=== PATIENT | female | born 1980 ===

== ENCOUNTER 2017-07-21 07:17 | Observation (INO) | payer OTHER ==
[2017-07-21 07:25] VITALS: BMI 25.0
[2017-07-21] MEDS ORDERED: Sodium Chloride 0.9% 1,000 ML IV STA (08:10)
--- NOTE | 2017-07-21 08:30 | ED PDOC ---
HPI: Abdomen Time Seen by Provider: 07/21/17 07:29 Chief Complaint (Nursing): Abdominal Pain Chief Complaint (Provider): Abdominal Pain History Per: Patient History/Exam Limitations: no limitations Onset/Duration Of Symptoms: Days (x1) Outside of [place] travel?: No Current Symptoms Are (Timing): Still Present Context: Food Associated Symptoms: Nausea. denies: Fever, Diarrhea Additional Complaint(s): 36 y/o female presents to the ED with abdominal pain. Patient states she had lunch yesterday and immediately after felt nausea with pain to her abdomen. She reports her ate the same food with no issues. Patient reports this is the 5th episode in the last two weeks. She also complains of feeling "gassy". Denies any fever, diarrhea, or genitourinary symptoms. PMD: none provided Past Medical History Reviewed: Historical Data, Nursing Documentation, Vital Signs Vital Signs: Last Vital Signs Temp 98.2 F 07/21/17 13:48 Pulse 58 L 07/21/17 13:48 Resp 17 07/21/17 13:48 BP 111/57 L 07/21/17 13:48 Pulse Ox 98 07/21/17 13:48 - Medical History PMH: No Chronic Diseases - Surgical History Surgical History: Other surgeries: tubal ligation - Family History Family History: States: No Known Family Hx - Living Arrangements Living Arrangements: With Family - Social History Current smoker - smoking cessation education provided: No Ex-Smoker (has not smoked in the last 12 months): No Alcohol: None Drugs: Denies - Home Medications Home Medications: Ambulatory Orders Medication Instructions Recorded No Known Home Med 07/21/17 - Allergies Allergies/Adverse Reactions: Allergies Allergy/AdvReac Type Severity Reaction Status Date / Time apple Allergy ITCHING Verified 07/21/17 07:40 Review of Systems ROS Statement: Except As Marked, All Systems Reviewed And Found Negative Constitutional: Negative for: Fever Gastrointestinal: Positive for: Nausea, Abdominal Pain, Other (gassy). Negative for: Diarrhea Genitourinary Female: Negative for: Other (genitourinary symptoms) Physical Exam - Reviewed Nursing Documentation Reviewed: Yes Vital Signs Reviewed: Yes - Physical Exam Appears: Positive for: Non-toxic, No Acute Distress Head Exam: Positive for: ATRAUMATIC, NORMOCEPHALIC Skin: Positive for: Normal Color, Warm, Dry Eye Exam: Positive for: EOMI, Normal appearance, PERRL Cardiovascular/Chest: Positive for: Regular Rate, Rhythm. Negative for: Murmur Respiratory: Positive for: Normal Breath Sounds. Negative for: Respiratory Distress Gastrointestinal/Abdominal: Positive for: Normal Exam, Soft, Tenderness (LUQ). Negative for: Guarding, Rebound Extremity: Positive for: Normal ROM Neurologic/Psych: Positive for: Alert, Oriented (x3) - Laboratory Results Result Diagrams: 07/21/17 08:31 07/21/17 08:31 - ECG O2 Sat by Pulse Oximetry: 100 (RA) Pulse Ox Interpretation: Normal - Physician Consult Information Time Consulting Physican Contacted: 15:21 Physician Contacted: Regan Connell Outcome Of Conversation: Recommends MRCP, NPO, abx, admit to Hospitalist. Medical Decision Making Medical Decision Making: Time: 7:26 Impression: Intermittent abdominal pain Initial Plan: * CAT Scan Abd/Pelvis IV contrast * CMP * Lipase Test * UDip * Test * PTT * Prothrombin Time * Morphine 2 mg IV * IV Fluids * Zofran 4 mg PO * Urinalysis * CBC Scribe Attestation: Documented by Jacki Hurtado acting as a scribe Svitlana Neal MD. Scribe Attestation: All medical record entries made by the Scribe were at my direction and personally dictated by me. I have reviewed the chart and agree that the record accurately reflects my personal performance of the history, physical exam, medical decision making, and the department course for this patient. I have also personally directed, reviewed, and agree with the discharge instructions and disposition. Disposition - Disposition Forms: [facility] ([place])
[2017-07-21 08:36] LABS: BASO % 0.5 % (0.0-2.0); EOS # 0.2 K/uL (0.0-0.7); EOS % 3.7 % (0.0-4.0); HEMOGLOBIN 13.4 g/dL (12.0-16.0); LYMPH # 0.8 K/uL (1.0-4.3); LYMPH % 15.2 % (20.0-40.0); MEAN CORPUSCULAR HEMOGLOBIN 31.2 pg (27.0-31.0); MEAN CORPUSCULAR HGB CONC 34.3 g/dL (33.0-37.0); MEAN PLATELET VOLUME 7.6 fl (7.2-11.7); MONO # 0.4 K/uL (0.0-0.8); MONO % 8.8 % (0.0-10.0); NEUT # 3.6 K/uL (1.8-7.0); NEUT % 71.8 % (50.0-75.0); RBC 4.28 Mil/uL (3.80-5.20); RED CELL DISTRIBUTION WIDTH 13.8 % (11.5-14.5); WHITE BLOOD COUNT 5.1 K/uL (4.8-10.8)
[2017-07-21 08:46] LABS: INR 1.1 (0.9-1.2); PARTIAL THROMBOPLASTIN TIME 27.5 Seconds (25.6-37.1); PROTHROMBIN TIME 11.7 Seconds (9.8-13.1)
[2017-07-21 08:47] LABS: SQUAMOUS EPITHIAL 1 /hpf (0-5); URINE BILIRUBIN NEGATIVE (NEGATIVE); URINE BLOOD NEGATIVE (NEGATIVE); URINE CLARITY SLIGHTY-CLOUDY (Clear); URINE COLOR AMBER (YELLOW); URINE GLUCOSE (UA) NEG (Normal); URINE LEUKOCYTE ESTERASE NEG Leu/uL (Negative); URINE PROTEIN 30 mg/dL (NEGATIVE)
[2017-07-21 08:49] LABS: ALB/GLOB RATIO 1.4 (1.0-2.1); ALBUMIN 4.1 g/dL (3.5-5.0); BLOOD UREA NITROGEN 17 mg/dl (7-17); CALCIUM 9.3 mg/dL (8.4-10.2); GFR AFRICAN-AMERICAN > 60; GFR NON-AFRICAN AMERICAN > 60; LIPASE 371 U/L (23-300)
[2017-07-21 09:05] LABS: ALT/SGPT 1198 U/L (9-52); AST/SGOT 855 U/L (14-36)
[2017-07-21] MEDS ORDERED: Sodium Chloride 0.9% 50 ML IV ONE (10:32)
[2017-07-21] MEDS ORDERED: Iohexol 300 100 ML IJ ONE (10:32)
--- NOTE | 2017-07-21 11:24 | CT ---
PROCEDURE: CT Abdomen and Pelvis with contrast HISTORY: LUQ pain COMPARISON: CT scan of the abdomen pelvis dated 01/04/2009. TECHNIQUE: Contrast dose: 95 mL Omnipaque 300 Radiation dose: Total exam DLP = 465.4 mGy-cm. This CT exam was performed using one or more of the following dose reduction techniques: Automated exposure control, adjustment of the mA and/or kV according to patient size, and/or use of iterative reconstruction technique. FINDINGS: LOWER THORAX: Unremarkable. LIVER: Hepatic steatosis. No gross lesion or ductal dilatation. GALLBLADDER AND BILE DUCTS: Distended gallbladder with wall thickening/edema/enhancement. PANCREAS: Unremarkable. No gross lesion or ductal dilatation. SPLEEN: Unremarkable. ADRENALS: Unremarkable. No mass. KIDNEYS AND URETERS: Unremarkable. No hydronephrosis. No solid mass. VASCULATURE: Unremarkable. No aortic aneurysm. BOWEL: Unremarkable. No obstruction. No gross mural thickening. APPENDIX: Normal appendix. PERITONEUM: Unremarkable. No free fluid. No free air. LYMPH NODES: Unremarkable. No enlarged lymph nodes. BLADDER: Unremarkable. REPRODUCTIVE: Unremarkable. BONES: No acute fracture. OTHER FINDINGS: None. IMPRESSION: Distended gallbladder with wall thickening/ edema/enhancement for which gallbladder pathology cannot be excluded. Right upper quadrant ultrasound can be obtained for further evaluation as clinically warranted.
--- NOTE | 2017-07-21 14:49 | US ---
HISTORY: Abnormal CT, elevated LFTs COMPARISON: Correlations made CT scan of the abdomen pelvis performed earlier the same date. TECHNIQUE: Sonographic evaluation of the right upper quadrant of the abdomen. FINDINGS: LIVER: Measures 16 cm in length. Increased echogenicity of the liver parenchyma. No mass. No intrahepatic bile duct dilatation. GALLBLADDER: Cholelithiasis with gallbladder wall thickening/edema. Sonographic Stewart sign was elicited. COMMON BILE DUCT: Measures 6 mm. No stones. No dilatation. PANCREAS: Unremarkable as visualized. No mass. No ductal dilatation. RIGHT KIDNEY: Measures 11.2 x 5.1 x 4.1 cm in length. Normal echogenicity. No calculus, mass, or hydronephrosis. AORTA: No aneurysmal dilatation. IVC: Unremarkable. OTHER FINDINGS: None . IMPRESSION: Cholelithiasis with gallbladder wall thickening/ edema and positive sonographic Stewart's sign suspicious for acute cholecystitis.
[2017-07-21] MEDS ORDERED: Piperacillin/Tazobact 3.375 GM in Sodium Chloride 0.9% 100 ML IVPB STA (14:58)
[2017-07-21] MEDS ORDERED: Piperacillin/Tazobact 4.5 GM in Sodium Chloride 0.9% 100 ML IVPB STA (15:10)
[2017-07-21] MEDS ORDERED: Dextrose 5%/0.9% NS 1,000 ML IV ONE (15:43)
--- NOTE | 2017-07-21 16:03 | CP.PCM.HP ---
History of Present Illness - History of Present Illness History of Present Illness: CC: Nausea/vomiting This is a 36 year old female with past medical history of nephrolithiasis 10 years ago, no other medical problems, who began having intermittent nausea and vomiting associated with fatty meals, 3 weeks ago. Associated with this vomiting (nonbloody), the patient also began having sharp right sided back and upper thigh pain and a burning sensation in the epigastric area. The patient last night had several bouts of nausea and vomiting which prompted her to come to the ED this morning. In the ED, the patient was found to be hemodynamically stable. Lab results however revealed T bili of 1.5, AST of 855, ALT of 1198, and mildly elevated lipase of 371. CT scan and follow up sonogram revealed cholelithiasis with gallbladder wall thickening/edema with positive Stewart's sign. There is no evidence of CBD dilatation however. Dr. Connell, general surgery , was consulted from the ED. The patient is being admitted to med/surg for acute cholecystitis for further workup and management. Present on Admission - Present on Admission Any Indicators Present on Admission: No History of DVT/PE: No History of Uncontrolled Diabetes: No Review of Systems - Review of Systems Review of Systems: A 12 point review of systems was conducted and found to be negative other than what was mentioned in the HPI. Past Patient History - Infectious Disease Hx of Infectious Diseases: None - Past Medical History & Family History Past Medical History?: Yes Past Family History: Reviewed and not pertinent - Past Social History Smoking Status: Former Smoker Alcohol: None Drugs: Denies Home Situation {Lives}: With Family - CARDIAC Hx Cardiac Disorders: No Hx Congestive Heart Failure: No Hx Hypercholesterolemia: No - PULMONARY Hx Asthma: No - ENDOCRINE/METABOLIC Hx Diabetes Mellitus Type 1: No Hx Diabetes Mellitus Type 2: No - GASTROINTESTINAL Hx Gastrointestinal Disorders: No - PSYCHIATRIC Hx Substance Use: No - SURGICAL HISTORY Hx Surgeries: Yes Hx Section: Yes (x1) Hx Hysterectomy: Yes Meds Allergies/Adverse Reactions: Allergies Allergy/AdvReac Type Severity Reaction Status Date / Time apple Allergy ITCHING Verified 07/21/17 07:40 Physical Exam - Additional Findings Additional findings: Physical exam: Constitutional- cooperative, awake, alert Head- NCAT, PERRL Eye- PERRL, EOMI ENT- normal exam, MMM. Neck- normal inspection, supple, no JVD Respiratory- CTAB, no wheezes rales rhonchi Cardiovascular- RRR, +S1, +S2 no MRG GI/Abdominal-+ Tenderness to palpation of the RUQ. normal bowel sounds, soft, no mass, no hsm Skin- warm, dry Extremities Exam- normal capillary refill, normal inspection Neurological Exam- alert, awake, oriented Psych- normal mood, normal affect Results - Vital Signs Recent Vital Signs: Last Vital Signs Temp 98.2 F 07/21/17 13:48 Pulse 58 L 07/21/17 13:48 Resp 17 07/21/17 13:48 BP 111/57 L 07/21/17 13:48 Pulse Ox 100 07/21/17 15:22 - Labs Result Diagrams: 07/21/17 08:31 07/21/17 08:31 Labs: Laboratory Results - last 24 hr 07/21/17 07/21/17 07/21/17 08:31 08:31 08:31 WBC 5.1 RBC 4.28 Hgb 13.4 Hct 38.9 MCV 91.0 MCH 31.2 H MCHC 34.3 RDW 13.8 Plt Count 197 MPV 7.6 Neut % (Auto) 71.8 Lymph % (Auto) 15.2 L [place] % (Auto) 8.8 Eos % (Auto) 3.7 Baso % (Auto) 0.5 Neut # (Auto) 3.6 Lymph # (Auto) 0.8 L [place] # (Auto) 0.4 Eos # (Auto) 0.2 Baso # (Auto) 0.0 PT 11.7 INR 1.1 APTT 27.5 Sodium 138 Potassium 3.7 Chloride 101 Carbon Dioxide 31 H Anion Gap 10 BUN 17 Creatinine 0.6 L Est GFR ( Amer) > 60 Est GFR (Non-Af Amer) > 60 Random Glucose 95 Calcium 9.3 Total Bilirubin 1.5 H AST 855 H ALT 1198 H Alkaline Phosphatase 122 Total Protein 7.2 Albumin 4.1 Globulin 3.0 Albumin/Globulin Ratio 1.4 Lipase 371 H Urine Color Urine Clarity Urine pH Ur Specific [place] Urine Protein Urine Glucose (UA) Urine Ketones Urine Blood Urine Nitrate Urine Bilirubin Urine Urobilinogen Ur Leukocyte Esterase Urine RBC (Auto) Urine Microscopic WBC Ur Squamous Epith Cells 07/21/17 08:31 WBC RBC Hgb Hct MCV MCH MCHC RDW Plt Count MPV Neut % (Auto) Lymph % (Auto) [place] % (Auto) Eos % (Auto) Baso % (Auto) Neut # (Auto) Lymph # (Auto) [place] # (Auto) Eos # (Auto) Baso # (Auto) PT INR APTT Sodium Potassium Chloride Carbon Dioxide Anion Gap BUN Creatinine Est GFR ( Amer) Est GFR (Non-Af Amer) Random Glucose Calcium Total Bilirubin AST ALT Alkaline Phosphatase Total Protein Albumin Globulin Albumin/Globulin Ratio Lipase Urine Color [place] Urine Clarity Slighty-cloudy Urine pH 7.0 Ur Specific [place] 1.028 Urine Protein 30 Urine Glucose (UA) Neg Urine Ketones Trace Urine Blood Negative Urine Nitrate Negative Urine Bilirubin Negative Urine Urobilinogen 2.0 H Ur Leukocyte Esterase Neg Urine RBC (Auto) 2 Urine Microscopic WBC < 1 Ur Squamous Epith Cells 1 Assessment & Plan - Assessment and Plan (Free Text) Plan: This is a 36 year old female with past medical history of nephrolithiasis 10 years ago, no other medical problems, who is being admitted for acute cholecystitis 1) Acute cholecystitis with elevated transaminases and mildly elevated lipase - Admit to med/surg - Consultation with general surgery appreciated - MRCP for further evaluation and to evaluate for choledocholithiasis - Trend bili, AST/ALT, monitor closely for cholangitis - Zosyn - D5 NS at 100 cc/hour while NPO - Pain management with morphine 2) DVT prophylaxis - SCDs
[2017-07-21] MEDS ORDERED: Piperacillin/Tazobact 3.375 gm Inj IVPB ONE (17:44)
[2017-07-21] MEDS: Piperacillin/Tazobact 3.375 GM in Sodium Chloride 0.9% 100 ML IVPB SCH ×2 (17:45→23:00)
--- NOTE | 2017-07-21 17:57 | MRI ---
PROCEDURE: Magnetic Resonance Cholangiopancreatography HISTORY: COMPARISON: None available. TECHNIQUE: Multiplanar, multisequence MR images of the abdomen were obtained, including heavily T2 weighted MRCP images of the biliary system. Rotating maximum intensity projection images of the biliary system were generated. FINDINGS: MRCP: The common bile duct is of a normal caliber. No evidence of choledocholithiasis. No intrahepatic biliary ductal dilatation. LIVER: Unremarkable. GALLBLADDER: Cholelithiasis. Thickened wall. Mild pericholecystic edema. No kady pericholecystic fluid. SPLEEN: Unremarkable. PANCREAS: Unremarkable. ADRENALS: Unremarkable. KIDNEYS: Unremarkable. AORTA: No aneurysm. ASCITES: None. OTHER FINDINGS: None. IMPRESSION: Cholelithiasis with thickened gallbladder wall and mild pericholecystic edema. Possible cholecystitis. No evidence of choledocholithiasis or biliary obstruction.
[2017-07-21] MEDS ORDERED: Sodium Chloride 0.9% 1,000 ML IV SCH (18:00)
[2017-07-21] MEDS: Sodium Chloride 0.9% 1,000 ML IV SCH (18:02)
--- NOTE | 2017-07-21 19:51 | CP.PCM.CON ---
History of Present Illness - History of Present Illness History of Present Illness: General Surgery Consult Note: Dr. Connell 36F with no significant past medical history presents to [facility] ED with complaints of abdominal pain. Patient states she's been having abdominal pain for the past 2 months. She describes the pain usually comes about after having meals. Yesterday she developed epigastric pain that radiated towards her RUQ. Patient admits this has been the most painful episode she's had to date. She reports having multiples bouts of emesis after having had a large meal of ceviche and fried fish. At time of examination she reported nausea. Denied fever /chills, chest pain, shortness of breath, dysuria. PMH: as stated above PSurgHx: Csection 9 years ago, abdominoplasty and tubal ligation 4 years ago Allergies: Apple Fam Hx: non-contributory Review of Systems - Review of Systems Review of Systems: 12pt ROS unremarkable, except as stated in HPI Past Patient History - Infectious Disease Hx of Infectious Diseases: None - Past Medical History & Family History Past Medical History?: Yes Past Family History: Reviewed and not pertinent - Past Social History Smoking Status: Former Smoker Alcohol: None Drugs: Denies Home Situation {Lives}: With Family - CARDIAC Hx Cardiac Disorders: No Hx Congestive Heart Failure: No Hx Hypercholesterolemia: No - PULMONARY Hx Asthma: No - ENDOCRINE/METABOLIC Hx Diabetes Mellitus Type 1: No Hx Diabetes Mellitus Type 2: No - GASTROINTESTINAL Hx Gastrointestinal Disorders: No - PSYCHIATRIC Hx Substance Use: No - SURGICAL HISTORY Hx Surgeries: Yes Hx Section: Yes (x1) Hx Hysterectomy: Yes Meds Allergies/Adverse Reactions: Allergies Allergy/AdvReac Type Severity Reaction Status Date / Time apple Allergy ITCHING Verified 07/21/17 07:40 - Medications Medications: Current Medications Piperacillin Sod/Tazobactam (Sod 3.375 gm/ Sodium Chloride) 100 mls @ 100 mls/ hr IVPB Q6 BRENDEN PRN Reason: Protocol Last Admin: 07/21/17 17:45 Dose: 100 mls/hr Sodium Chloride (Sodium Chloride 0.9%) 1,000 mls @ 200 mls/hr IV .Q5H BRENDEN Stop: 07/22/17 17:57 Last Admin: 07/21/17 18:02 Dose: 200 mls/hr Morphine Sulfate (Morphine) 2 mg IVP Q4 PRN PRN Reason: Pain, moderate (4-7) Morphine Sulfate (Morphine) 4 mg IVP Q6 PRN PRN Reason: Pain, severe (8-10) Ondansetron HCl (Zofran Odt) 4 mg PO Q8H PRN PRN Reason: Nausea/Vomiting Physical Exam - Constitutional Appears: Non-toxic, No Acute Distress - Head Exam Head Exam: NORMOCEPHALIC - Eye Exam Eye Exam: EOMI, Normal appearance - ENT Exam ENT Exam: Mucous Membranes Moist - Respiratory Exam Respiratory Exam: NORMAL BREATHING PATTERN - Cardiovascular Exam Cardiovascular Exam: +S1, +S2 - GI/Abdominal Exam GI & Abdominal Exam: Soft, Tenderness. absent: Firm, Guarding, Hernia, Rebound , Rigid Additional comments: +Stewart's +RUQ tenderness +Epigastric tenderness - Neurological Exam Neurological exam: Alert, Oriented x3 - Psychiatric Exam Psychiatric exam: Normal Mood - Skin Skin Exam: Dry, Intact, Normal Color, Warm Results - Vital Signs Recent Vital Signs: Last Vital Signs Temp 98.7 F 07/21/17 17:51 Pulse 63 07/21/17 17:51 Resp 16 07/21/17 17:51 BP 93/57 L 07/21/17 17:51 Pulse Ox 98 07/21/17 17:51 - Labs Result Diagrams: 07/21/17 08:31 07/21/17 08:31 Labs: Laboratory Results - last 24 hr 07/21/17 07/21/17 07/21/17 08:31 08:31 08:31 WBC 5.1 RBC 4.28 Hgb 13.4 Hct 38.9 MCV 91.0 MCH 31.2 H MCHC 34.3 RDW 13.8 Plt Count 197 MPV 7.6 Neut % (Auto) 71.8 Lymph % (Auto) 15.2 L [place] % (Auto) 8.8 Eos % (Auto) 3.7 Baso % (Auto) 0.5 Neut # (Auto) 3.6 Lymph # (Auto) 0.8 L [place] # (Auto) 0.4 Eos # (Auto) 0.2 Baso # (Auto) 0.0 PT 11.7 INR 1.1 APTT 27.5 Sodium 138 Potassium 3.7 Chloride 101 Carbon Dioxide 31 H Anion Gap 10 BUN 17 Creatinine 0.6 L Est GFR ( Amer) > 60 Est GFR (Non-Af Amer) > 60 Random Glucose 95 Calcium 9.3 Total Bilirubin 1.5 H AST 855 H ALT 1198 H Alkaline Phosphatase 122 Total Protein 7.2 Albumin 4.1 Globulin 3.0 Albumin/Globulin Ratio 1.4 Lipase 371 H Urine Color Urine Clarity Urine pH Ur Specific [place] Urine Protein Urine Glucose (UA) Urine Ketones Urine Blood Urine Nitrate Urine Bilirubin Urine Urobilinogen Ur Leukocyte Esterase Urine RBC (Auto) Urine Microscopic WBC Ur Squamous Epith Cells 07/21/17 08:31 WBC RBC Hgb Hct MCV MCH MCHC RDW Plt Count MPV Neut % (Auto) Lymph % (Auto) [place] % (Auto) Eos % (Auto) Baso % (Auto) Neut # (Auto) Lymph # (Auto) [place] # (Auto) Eos # (Auto) Baso # (Auto) PT INR APTT Sodium Potassium Chloride Carbon Dioxide Anion Gap BUN Creatinine Est GFR ( Amer) Est GFR (Non-Af Amer) Random Glucose Calcium Total Bilirubin AST ALT Alkaline Phosphatase Total Protein Albumin Globulin Albumin/Globulin Ratio Lipase Urine Color [place] Urine Clarity Slighty-cloudy Urine pH 7.0 Ur Specific [place] 1.028 Urine Protein 30 Urine Glucose (UA) Neg Urine Ketones Trace Urine Blood Negative Urine Nitrate Negative Urine Bilirubin Negative Urine Urobilinogen 2.0 H Ur Leukocyte Esterase Neg Urine RBC (Auto) 2 Urine Microscopic WBC < 1 Ur Squamous Epith Cells 1 - Imaging and Cardiology CT scan - abdomen Status: Image reviewed by me, Report reviewed by me MRI - abdomen Status: Image reviewed by me, Report reviewed by me US - abdomen Status: Image reviewed by me, Report reviewed by me Assessment & Plan - Assessment and Plan (Free Text) Assessment: 36F with acute cholecystitis Plan: NPO IVF ABx F/u AM labs Analgesics prn Anti-emetic prn Will plan for laparoscopic cholecystectomy early next week D/w Dr. Ko Zacarias PGY 2
[2017-07-22] MEDS: Sodium Chloride 0.9% 1,000 ML IV SCH ×2 (00:23→04:50)
[2017-07-22] MEDS: Piperacillin/Tazobact 3.375 GM in Sodium Chloride 0.9% 100 ML IVPB SCH ×3 (04:49→15:21)
[2017-07-22 08:18] VITALS: RESP 20
[2017-07-22 08:21] LABS: HEMOGLOBIN 12.4 g/dL (12.0-16.0); MEAN CORPUSCULAR HEMOGLOBIN 31.5 pg (27.0-31.0); MEAN CORPUSCULAR HGB CONC 34.2 g/dL (33.0-37.0); RBC 3.95 Mil/uL (3.80-5.20); WHITE BLOOD COUNT 6.1 K/uL (4.8-10.8)
[2017-07-22 08:39] LABS: ALB/GLOB RATIO 1.3 (1.0-2.1); ALBUMIN 3.4 g/dL (3.5-5.0); ALT/SGPT 690 U/L (9-52); AST/SGOT 225 U/L (14-36); BLOOD UREA NITROGEN 17 mg/dl (7-17); CALCIUM 8.2 mg/dL (8.4-10.2); GFR AFRICAN-AMERICAN > 60; GFR NON-AFRICAN AMERICAN > 60; LIPASE 59 U/L (23-300)
--- NOTE | 2017-07-22 10:34 | CP.PCM.PN ---
Subjective - Date & Time of Evaluation Date of Evaluation: 07/22/17 Time of Evaluation: 07:25 - Subjective Subjective: Surgery Progress note. Dr. Connell Pt seen and examined at bedside. No acute events overnight. Abdominal pain improving. No N/V/D. Tolerating liquid diet and requesting to advance diet until surgery. No F/C. No new complaints. Objective - Vital Signs/Intake and Output Vital Signs (last 24 hours): Temp Pulse Resp BP Pulse Ox 98.3 F 61 20 104/61 99 07/22/17 08:50 07/22/17 08:50 07/22/17 08:50 07/22/17 08:50 07/22/17 08:50 - Medications Medications: Current Medications Piperacillin Sod/Tazobactam (Sod 3.375 gm/ Sodium Chloride) 100 mls @ 100 mls/ hr IVPB Q6 BRENDEN PRN Reason: Protocol Last Admin: 07/22/17 09:21 Dose: 100 mls/hr Sodium Chloride (Sodium Chloride 0.9%) 1,000 mls @ 200 mls/hr IV .Q5H BRENDEN Stop: 07/22/17 17:57 Last Admin: 07/22/17 04:50 Dose: 200 mls/hr Metoclopramide HCl (Reglan) 10 mg IVP Q6 PRN PRN Reason: Nausea/Vomiting Last Admin: 07/22/17 05:50 Dose: 10 mg Morphine Sulfate (Morphine) 2 mg IVP Q4 PRN PRN Reason: Pain, moderate (4-7) Last Admin: 07/22/17 04:52 Dose: 2 mg Morphine Sulfate (Morphine) 4 mg IVP Q6 PRN PRN Reason: Pain, severe (8-10) - Labs Labs: 07/22/17 06:00 07/22/17 06:00 PT 11.7 Seconds (9.8-13.1) 07/21/17 08:31 INR 1.1 (0.9-1.2) 07/21/17 08:31 APTT 27.5 Seconds (25.6-37.1) 07/21/17 08:31 - Constitutional Appears: Well, Non-toxic, No Acute Distress - Head Exam Head Exam: ATRAUMATIC, NORMAL INSPECTION, NORMOCEPHALIC - Eye Exam Eye Exam: EOMI, Normal appearance - ENT Exam ENT Exam: Mucous Membranes Moist - Respiratory Exam Respiratory Exam: NORMAL BREATHING PATTERN. absent: Accessory Muscle Use, Respiratory Distress - GI/Abdominal Exam GI & Abdominal Exam: Soft. absent: Distended, Firm, Guarding, Rebound Additional comments: Mild tenderness to palpation RUQ and epigastric area - Rectal Exam Rectal Exam: NORMAL INSPECTION - Extremities Exam Extremities Exam: Normal Inspection. absent: Calf Tenderness - Back Exam Back Exam: NORMAL INSPECTION - Neurological Exam Neurological Exam: Alert, Awake, Oriented x3 - Psychiatric Exam Psychiatric exam: Normal Affect, Normal Mood - Skin Skin Exam: Dry, Intact, Normal Color, Warm Assessment and Plan - Assessment and Plan (Free Text) Assessment: 36yo F with acute cholecystitis Plan: - monitor and trend LFTs - Advance diet to low fat - Abx - IVF - pain management - antiemetics prn - To OR early next week if patient remains in-patient. Patient may be discharged and follow up in office for elective lap cholecystectomy if she prefers. Call office for appointment. Continue low fat diet if discharged. Further recs as per Dr. Ko Isidro PGY1 surgery pager: [phone]
--- NOTE | 2017-07-22 13:51 | RAD ---
HISTORY: Admission COMPARISON: No prior. TECHNIQUE: Chest PA and lateral FINDINGS: LUNGS: No active pulmonary disease. PLEURA: No significant pleural effusion identified. No pneumothorax apparent. CARDIOVASCULAR: Normal. OSSEOUS STRUCTURES: No significant abnormalities. VISUALIZED UPPER ABDOMEN: Normal. OTHER FINDINGS: None. IMPRESSION: No active disease.
--- NOTE | 2017-07-22 16:09 | CP.PCM.DIS ---
Provider - Provider Date of Admission: 07/21/17 15:12 Attending physician: Cas Boudreaux DO Consults: Dr Connell Time Spent in preparation of Discharge (in minutes): 25 Diagnosis - Discharge Diagnosis (1) Acute cholecystitis Status: Acute Comment: improved. continue Augmentin 875/125 PO BID. Percocet PO q 4hrs prn for moderate-severe pain. follow up with Dr Connell on Monday [facility] Course - Lab Results Lab Results: Most Recent Lab Values WBC 6.1 K/uL (4.8-10.8) 07/22/17 06:00 RBC 3.95 Mil/uL (3.80-5.20) 07/22/17 06:00 Hgb 12.4 g/dL (12.0-16.0) 07/22/17 06:00 Hct 36.4 % (34.0-47.0) 07/22/17 06:00 MCV 92.0 fl (81.0-99.0) 07/22/17 06:00 MCH 31.5 pg (27.0-31.0) H 07/22/17 06:00 MCHC 34.2 g/dL (33.0-37.0) 07/22/17 06:00 RDW 14.0 % (11.5-14.5) 07/22/17 06:00 Plt Count 170 K/uL (130-400) 07/22/17 06:00 MPV 7.6 fl (7.2-11.7) 07/21/17 08:31 Neut % (Auto) 71.8 % (50.0-75.0) 07/21/17 08:31 Lymph % (Auto) 15.2 % (20.0-40.0) L 07/21/17 08:31 [place] % (Auto) 8.8 % (0.0-10.0) 07/21/17 08:31 Eos % (Auto) 3.7 % (0.0-4.0) 07/21/17 08:31 Baso % (Auto) 0.5 % (0.0-2.0) 07/21/17 08:31 Neut # (Auto) 3.6 K/uL (1.8-7.0) 07/21/17 08:31 Lymph # (Auto) 0.8 K/uL (1.0-4.3) L 07/21/17 08:31 [place] # (Auto) 0.4 K/uL (0.0-0.8) 07/21/17 08:31 Eos # (Auto) 0.2 K/uL (0.0-0.7) 07/21/17 08:31 Baso # (Auto) 0.0 K/uL (0.0-0.2) 07/21/17 08:31 PT 11.7 Seconds (9.8-13.1) 07/21/17 08:31 INR 1.1 (0.9-1.2) 07/21/17 08:31 APTT 27.5 Seconds (25.6-37.1) 07/21/17 08:31 Sodium 141 mmol/l (132-148) 07/22/17 06:00 Potassium 3.9 MMOL/L (3.6-5.0) 07/22/17 06:00 Chloride 109 mmol/L (98-107) H 07/22/17 06:00 Carbon Dioxide 21 mmol/L (22-30) L 07/22/17 06:00 Anion Gap 15 (10-20) 07/22/17 06:00 BUN 17 mg/dl (7-17) 07/22/17 06:00 Creatinine 0.7 mg/dl (0.7-1.2) 07/22/17 06:00 Est GFR ( Amer) > 60 07/22/17 06:00 Est GFR (Non-Af Amer) > 60 07/22/17 06:00 Random Glucose 65 mg/dL (65-105) 07/22/17 06:00 Calcium 8.2 mg/dL (8.4-10.2) L 07/22/17 06:00 Total Bilirubin 0.8 mg/dl (0.2-1.3) 07/22/17 06:00 AST 225 U/L (14-36) H D 07/22/17 06:00 ALT 690 U/L (9-52) H D 07/22/17 06:00 Alkaline Phosphatase 114 U/L (38-126) 07/22/17 06:00 Total Protein 6.1 G/DL (6.3-8.2) L 07/22/17 06:00 Albumin 3.4 g/dL (3.5-5.0) L 07/22/17 06:00 Globulin 2.7 gm/dL (2.2-3.9) 07/22/17 06:00 Albumin/Globulin Ratio 1.3 (1.0-2.1) 07/22/17 06:00 Lipase 59 U/L (23-300) 07/22/17 06:00 Urine Color Joselyn (YELLOW) 07/21/17 08:31 Urine Clarity Slighty-cloudy (Clear) 07/21/17 08:31 Urine pH 7.0 (5.0-8.0) 07/21/17 08:31 Ur Specific [place] 1.028 (1.003-1.030) 07/21/17 08:31 Urine Protein 30 mg/dL (NEGATIVE) 07/21/17 08:31 Urine Glucose (UA) Neg mg/dL (Normal) 07/21/17 08:31 Urine Ketones Trace mg/dL (NEGATIVE) 07/21/17 08:31 Urine Blood Negative (NEGATIVE) 07/21/17 08:31 Urine Nitrate Negative (NEGATIVE) 07/21/17 08:31 Urine Bilirubin Negative (NEGATIVE) 07/21/17 08:31 Urine Urobilinogen 2.0 mg/dL (0.2-1.0) H 07/21/17 08:31 Ur Leukocyte Esterase Neg Nedra/uL (Negative) 07/21/17 08:31 Urine RBC (Auto) 2 /hpf (0-3) 07/21/17 08:31 Urine Microscopic WBC < 1 /hpf (0-5) 07/21/17 08:31 Ur Squamous Epith Cells 1 /hpf (0-5) 07/21/17 08:31 - Hospital Course Hospital Course: 36 yo female with no significant PMH admitted because of nausea and vomiting associated with epigastric pain and right sided back pain. CT scan and sonogram of the abdomen revealed cholelithiasis with gallbladder wall thickening. Patient was initially placed on NPO with pain medication plus IV Zosyn and improved. She was put back on diet and tolerated, She is discharged in stable condition and will follow with Dr Connell this coming Monday. She will continue Augmentin 875/125 PO BID and Percocet as needed for moderate-severe pain. Discharge Exam - Head Exam Head Exam: ATRAUMATIC, NORMAL INSPECTION, NORMOCEPHALIC - Eye Exam Eye Exam: absent: Scleral icterus - ENT Exam ENT Exam: Mucous Membranes Moist - Respiratory Exam Respiratory Exam: absent: Rales, Rhonchi, Wheezes, Respiratory Distress - Cardiovascular Exam Cardiovascular Exam: REGULAR RHYTHM, +S1, +S2 - GI/Abdominal Exam GI & Abdominal Exam: Soft. absent: Tenderness - Rectal Exam Rectal Exam: Deferred - Back Exam Back exam: absent: tenderness - Neurological Exam Neurological exam: Alert, Oriented x3 - Psychiatric Exam Psychiatric exam: Normal Affect - Skin Skin Exam: Dry, Intact Discharge Plan - Discharge Medications Prescriptions: Amoxicillin/Clavulanate [Augmentin 875 MG-125 MG] 1 tab PO BID #14 tab oxyCODONE/Acetaminophen [Percocet 5/325 mg Tab] 1 ea PO Q4 PRN #16 tab PRN Reason: Pain, Moderate (4-7) - Follow Up Plan Condition: STABLE Disposition: HOME/ ROUTINE
--- NOTE | 2017-07-22 16:43 | CARD ---
APPROVED REPORT EKG Measurement Heart [id number] MA [id number] <Conclusion> Sinus bradycardia Otherwise normal ECG
[2017-07-22] MEDS ORDERED: Metoclopramide 10 mg/10 ml Cup PO ONE (16:47)
[2017-07-22 17:05] VITALS: BP 98/62; PULSE 63; TEMP 98.8; O2SAT 98
== END 2017-07-22 18:05 | disposition home or self-care (01) ==
LOC: H.ER 07:17 → INTOOBSV 15:12 → H.ERHOLD 15:12 → H.MEDSURG1 22:06
PROVIDERS: ADMIT Internal Medicine; ATTEND Internal Medicine
DX: K81.0 Acute cholecystitis (principal); Z87.442 Personal history of urinary calculi; Z87.891 Personal history of nicotine dependence; Z90.710 Acquired absence of both cervix and uterus; M54.9 Dorsalgia, unspecified; R10.13 Epigastric pain; R11.2 Nausea with vomiting, unspecified; R74.8 Abnormal levels of other serum enzymes
CPT/HCPCS: 36415; 71046; 74177; 74181; 76705; 80053; 81003; 81025; 83690; 85025; 85027; 85610; 85730; 93005; 96361; 96365; 96366; 96375; 96376; 99285; G0378; J2270; J2543; J2765; J7030; J7042; Q9967

== ENCOUNTER 2017-07-26 06:55 | Day surgery (SDC) | payer OTHER ==
[2017-07-26] MEDS ORDERED: Bupivacaine HCl 0.25% PF (10 ml) Inj ONE (07:42)
[2017-07-26] MEDS ORDERED: Midazolam 2 MG/2 ML VIAL ONE (08:47)
[2017-07-26] MEDS ORDERED: ePHEDrine 50 mg/ml Inj ONE (08:47)
[2017-07-26] MEDS ORDERED: Propofol 10 mg/ml Inj (20 ML) ONE (08:47)
[2017-07-26] MEDS ORDERED: Rocuronium 10 mg/ml (5 ml) ONE (08:47)
[2017-07-26] MEDS ORDERED: Succinylcholine 200 mg/10 ml Inj IV ONE (08:48)
--- NOTE | 2017-07-26 08:51 | CP.SDSHP ---
Same Day Surgery H & P - History Proposed Procedure: lap lalitha - Allergies Allergies: Allergies apple Allergy (Verified 07/26/17 07:47) ITCHING - Physical Exam Vital Signs: Vital Signs 07/26/17 07/26/17 07:36 07:40 Temperature 98.6 F Pulse Rate 59 L 59 L Respiratory 18 Rate Blood Pressure 92/56 L O2 Sat by Pulse 98 Oximetry Neuro: WNL Heart: WNL Lungs: WNL GI: WNL - {Optional Preform as Required} Breast: WNL Abdomen: WNL Rectal: WNL Integument: WNL Ortho: WNL ENT: WNL - Impression Impression: cholecystitis Pt. Evaluated Today:Candidate for Anesthesia & Procedure: Yes - Date & Time Date: 07/26/17 Time: 08:50 Short Stay Discharge - Short Stay Discharge Admitting Diagnosis/Reason for Visit: K80.10 Disposition: HOME/ ROUTINE
[2017-07-26] MEDS ORDERED: Lactated Ringer's 1,000 ML IV ONE ×2 (08:55→09:30)
[2017-07-26] MEDS ORDERED: Dexamethasone 4 mg/1 ml ONE (09:16)
[2017-07-26] MEDS ORDERED: Neostigmine 1:1000 (1 mg/ml) Inj ONE (09:46)
--- NOTE | 2017-07-26 10:10 | PCM.SURG1 ---
Surgeon's Initial Post Op Note - Surgeon's Notes Surgeon: Dr. Marion Norris Respiratory Therapy Aide: Dr. Wolfe PGY2 Type of Anesthesia: General Endo Pre-Operative Diagnosis: symptomatic cholelithiasis Operative Findings: see operative report Post-Operative Diagnosis: see operative report Operation Performed: laparoscopic cholecystectomy Specimen/Specimens Removed: gallbladder Estimated Blood Loss: EBL {In ML}: 20 Blood Products Given: N/A Drains Used: No Drains Post-Op Condition: Good Date of Surgery/Procedure: 07/26/17 Time of Surgery/Procedure: 09:10
[2017-07-26] MEDS ORDERED: HYDROmorphone 0.5 mg/0.5 ml ISec IVP PRN (10:15)
[2017-07-26] MEDS ORDERED: HYDROmorphone 0.5 mg/0.5 ml ISec ONE (10:17)
[2017-07-26 14:15] VITALS: O2SAT 98
[2017-07-26] MEDS ORDERED: Oxycodone/Acetaminophen 5/325 mg Tab PO STA (15:08)
[2017-07-26 15:16] VITALS: BP 101/56; PULSE 66; RESP 20; TEMP 98.7
[2017-07-26] MEDS ORDERED: Oxycodone/Acetaminophen 5/325 mg Tab PO ONE (15:20)
--- NOTE | 2017-08-14 20:25 | OP ---
PROCEDURE DATE: 07/26/2017 OPERATION PERFORMED: Laparoscopic cholecystectomy. SURGEON: Dr. Regan Connell. PARKING MANAGER: Piotr Schultz MD TYPE OF ANESTHESIA: General anesthesia. PREOPERATIVE DIAGNOSIS: Cholecystitis. POSTOPERATIVE DIAGNOSIS: Cholecystitis. ESTIMATED BLOOD LOSS: Minimal. OPERATIVE FINDINGS: Cystic duct, cystic artery identified, critical view obtained. PREPARATION AND PROCEDURE: The patient was taken to the operating room and placed supine on the operating room table. After induction of general anesthesia, the abdomen was prepped and draped in a standard surgical fashion. A Veress needle was inserted into the abdomen through the umbilicus. The abdomen was insufflated. Once sufficient CO2 was entered into the abdomen, a 10-mm trocar was placed through the umbilicus and a diagnostic laparoscopy was performed. The patient was then placed into the reversed Trendelenburg left side down position and the subxiphoid and two right-sided trocars were placed under direct vision. The gallbladder was grasped from the fundus and pulled upwards and the neck of the gallbladder was pulled outwards exposing the triangle of Calot. Blunt dissection with a [place] dissector was used to isolate the contents of the triangle of [place]ot. Once the contents of the triangle were isolated, the cystic duct was identified and seen to be entering the gallbladder. The cystic duct was then clipped and divided. The cystic artery was then encircled clipped and divided in a similar fashion. The gallbladder was then taken off the gallbladder fossa using the electrocautery. Once the gallbladder was off the gallbladder fossa, it was placed into an EndoCatch bag. The right upper quadrant was copiously irrigated. The gallbladder fossa was checked for bleeding. There was no evidence of bleeding. The irrigant was removed. The gallbladder was then removed via the umbilical trocar site. The trocars were then removed under direct vision. The umbilical trocar site was closed using #0 Vicryl. The skin incisions were closed using #4-0 Monocryl and the patient had 10 cc of 1% Marcaine infiltrated into all the wounds. The patient tolerated the procedure well. There were no complications. The sponge, instrument, and needle counts were correct at the end of the case. POSTOPERATIVE CONDITION: The patient was then awakened from general anesthesia, transported to the recovery room in satisfactory condition. Regan Connell MD [facility] # [id number]
== END 2017-07-26 15:55 | disposition home or self-care (01) ==
LOC: H.OPSURG 06:55
PROVIDERS: ATTEND Surgery
DX: K80.10 Calculus of gallbladder with chronic cholecystitis without obstruction (principal)
CPT/HCPCS: 47562; 88104; 88304; J0330; J0690; J1100; J1170; J1885; J2001; J2250; J2704; J2710; J2765; J3010; J7030; J7120

== ENCOUNTER 2018-01-18 07:56 | Emergency (ER) | payer OTHER ==
[2018-01-18 07:59] VITALS: BMI 24.1
[2018-01-18 08:00] VITALS: O2SAT 98
[2018-01-18] MEDS ORDERED: Lidocaine 5% Patch TD ONE ×2 (08:46→08:52)
--- NOTE | 2018-01-18 08:48 | ED PDOC ---
HPI: Back Additional Complaint(s): Pt seen and examined at bedside with attending. 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 She denies any fevers, chills, N/V, diarrhea, urinary burning/pain/frequency, but there is some radiation into flank. She states she has not taken anything for the pain and it has worsened overnight after doing more exercises with the children yesterday. <Fransisca Cortés - Last Filed: 01/18/18 10:19> <Connie Lee - Last Filed: 01/21/18 20:07> Time Seen by Provider: 01/18/18 08:33 Chief Complaint (Nursing): Back Pain Past Medical History Vital Signs: Last Vital Signs Temp 36.9 C 01/18/18 07:59 Pulse 62 01/18/18 07:59 Resp 17 01/18/18 07:59 BP 105/71 01/18/18 07:59 Pulse Ox 98 01/18/18 07:59 - Medical History PMH: Denies: Asthma, CHF, HIV, Hypercholesterolemia, Chronic Kidney Disease - Surgical History Surgical History: Cholecystectomy, - Family History Family History: States: No Known Family Hx - Immunization History Hx Influenza Vaccination: No <Fransisca Cortés - Last Filed: 01/18/18 10:19> Vital Signs: Last Vital Signs Temp 98 F 01/18/18 10:15 Pulse 76 01/18/18 10:15 Resp 20 01/18/18 10:15 BP 120/70 01/18/18 10:15 Pulse Ox 98 01/18/18 10:20 <Connie Lee - Last Filed: 01/21/18 20:07> - Home Medications Home Medications: Ambulatory Orders Medication Instructions Recorded Amoxicillin/Clavulanate [Augmentin 1 tab PO BID #14 tab 07/22/17 875 MG-125 MG] Acetaminophen [Tylenol Extra 500 mg PO DAILY PRN 07/25/17 Strength] oxyCODONE/Acetaminophen [Percocet 1 tab PO Q4 PRN 07/26/17 5/325 mg Tab] Acetaminophen [Tylenol Extra 1,000 mg PO Q8H PRN #21 tablet 01/18/18 Strength] Cyclobenzaprine [Cyclobenzaprine 10 mg PO HS PRN #7 tab 01/18/18 HCl] - Allergies Allergies/Adverse Reactions: Allergies Allergy/AdvReac Type Severity Reaction Status Date / Time apple Allergy ITCHING Verified 07/26/17 07:47 Supervising Attending Note - Supervising Attending Note The Documented history was done by the: Physician Accounts Executive The documented physical exam was done by the: Physician Accounts Executive The documented procedures were done by the: Physician Accounts Executive - Attestation: I have personally seen and examined this patient.: Yes I have fully participated in the care of the patient.: Yes I have reviewed all pertinent clinical information: Yes <Connie Lee - Last Filed: 01/21/18 20:07> Review of Systems Musculoskeletal: Positive for: Back Pain <Fransisca Cortés - Last Filed: 01/18/18 10:19> Physical Exam - Reviewed Vital Signs Reviewed: Yes - Physical Exam Appears: Positive for: Well, Non-toxic Head Exam: Positive for: ATRAUMATIC Skin: Positive for: Normal Color, Warm, Dry Eye Exam: Positive for: Normal appearance ENT: Positive for: Normal ENT Inspection Neck: Positive for: Supple Cardiovascular/Chest: Positive for: Regular Rate, Rhythm. Negative for: Murmur Respiratory: Positive for: Normal Breath Sounds. Negative for: Crackles, Wheezing Gastrointestinal/Abdominal: Positive for: Normal Exam, Bowel Sounds, Soft. Negative for: Tenderness Back: Positive for: Muscle Spasm (LEFT T11/12 distribution). Negative for: L CVA Tenderness, R CVA Tenderness, Vertebral Tenderness Extremity: Positive for: Normal ROM Neurologic/Psych: Positive for: Alert, Oriented <Fransisca Cortés - Last Filed: 01/18/18 10:19> - ECG O2 Sat by Pulse Oximetry: 98 <Fransisca Cortés - Last Filed: 01/18/18 10:19> Medical Decision Making Medical Decision Making: Suspect back strain with muscle spasm. - U dip/U preg - Toradol, Lidoderm, Flexeril - Reeval U preg and U dip are negative Patient feeling much better <Fransisca Cortés - Last Filed: 01/18/18 10:19> Disposition - Patient ED Disposition Is Patient to be Admitted: No Counseled Patient/Family Regarding: Diagnosis, Rx Given - Disposition Disposition: Routine/Home Disposition Time: 09:53 <Fransisca Cortés - Last Filed: 01/18/18 10:19> <Connie Lee - Last Filed: 01/21/18 20:07> - Clinical Impression Clinical Impression: Back strain, Muscle spasm - Disposition Referrals: [facility] [Outside] Condition: IMPROVED Additional Instructions: Follow up with primary care doctor in 3-5 days Take medication as prescribed Return to the ER for worsening symptoms Prescriptions: Acetaminophen [Tylenol Extra Strength] 1,000 mg PO Q8H PRN #21 tablet PRN Reason: Pain, Mild (1-3) Cyclobenzaprine [Cyclobenzaprine HCl] 10 mg PO HS PRN #7 tab PRN Reason: Pain, Moderate (4-7) Instructions: Muscle Strain (DC), Back Exercises, Muscle Spasms (DC) Forms: [facility] ([place]ian)
[2018-01-18 10:16] VITALS: BP 120/70; PULSE 76; RESP 20; TEMP 98
== END 2018-01-18 10:17 | disposition home or self-care (01) ==
LOC: H.ER 07:56
DX: S39.012A Strain of muscle, fascia and tendon of lower back, initial encounter (principal); X50.9XXA Other and unspecified overexertion or strenuous movements or postures, initial encounter; Y92.89 Other specified places as the place of occurrence of the external cause
CPT/HCPCS: 81025; 96372; 99283; J1885